=== PATIENT | female | born 1965 | race Caucasian/White ===

== ENCOUNTER 2024-04-12 16:55 | Emergency (ER) | payer MEDICAID ==
[~2024-04-12] VITALS: Ht 157.5 cm; Wt 75.3 kg
[2024-04-12 17:19] VITALS: BP 132/90; TEMP 98.2; O2SAT 97
== END 2024-04-12 20:43 | disposition left against medical advice (07) ==
LOC: ER 19:20
DX: M25.561 Pain in right knee (principal); Z53.21 Procedure and treatment not carried out due to patient leaving prior to being seen by health care provider